=== PATIENT | female | born 1970 | race Caucasian/White ===

== ENCOUNTER 2021-02-09 08:10 | Outpatient (CLI) | payer OTHER ==
[~2021-02-09 08:10] MED LIST: REGADENOSON 0.4 MG/5 ML SYRINGE ONE
== END 2021-02-10 23:59 | disposition home or self-care (01) ==
LOC: CFH 08:10
PROVIDERS: ATTEND Internal Medicine Cardiovascular Disease
DX: I10 Essential (primary) hypertension (principal); R07.9 Chest pain, unspecified
CPT/HCPCS: 78452; 93017; A9502; J2785